=== PATIENT | female | born 1950 | race African-American/Black ===

== ENCOUNTER 2025-06-13 08:16 | Outpatient (AMB) | payer OTHER, SELFPAY ==
--- NOTE | 2025-06-13 08:03 | A.OFFPC_ITS ---
Vital Signs 06/13/25 08:20 Height 5 ft 3 in Weight 138 lb 6 oz BMI 24.5 BP 104/70 Blood Pressure Location Lt brachial Position Sitting Respiration 16 Pulse 57 Pulse Source Pulse Oximeter Temp 97.9 F Temp Source Oral Pulse Oximetry (%) 98 Oxygen Delivery Method Room Air Intake Visit Reasons: Office visit Research Editor Required: No Accompanied by: Self / Same As Patient Allergies No Known Allergies Allergy (Verified 06/13/25 08:21) Medication List - Last Reconciled 06/13/25 by Raquel Rodríguez MD amoxicillin 2,000 mg PO ONCE aspirin 81 mg PO DAILY calcium carbonate (Tums) 200 mg PO BID docusate sodium (Colace) 100 mg PO BID ferrous sulfate 324 mg PO DAILY mecobalamin (vitamin B12) 1,000 mcg PO DAILY Tobacco use date assessed: 06/13/25 Fall risk assessment: No Falls in past year Last assessed Fall Risk: 06/13/25 Dental Screening Dental Screen Date: 06/13/25 Did you have a dental visit in the last 12 months?: Yes Did you have a dental problem in the last 6 months where you did not have access to dental care?: No Was dental information given to patient?: Patient has dentist HPI HPI Comments History of Present Illness Details The patient is a 74-year-old female presenting with re-establishment of care for ongoing medical concerns. Visual Disturbance: The patient reports bilateral vision changes with increased fogginess, symptoms have been ongoing for a few months. Notes occasional dizziness. Polyuria: The patient experiences frequent urination approximately every two hours, with clear urine, and denies dietary changes or urinary pain. Lightheadedness: The patient reports lightheadedness upon standing, also endorses inadequate hydration. History of Parathyroid surgery for hyperarathyroidism: surgery done at [facility] Dermatological Concerns: The patient's daughter has noticed different-appearing lesions on the patient's back, prompting evaluation for potential skin abnormalities. Iron deficiency anemia- on iron supplement B12 deficiency- on vitamin b12 Impaired fasting glucose-due for repeat a1c Medical History: - History of parathyroid surgery - History of cataract surgery - History of borderline hemoglobin A1C l evels - History of anemia Surgical History: - Parathyroid surgery - Cataract surgery - Bilateral hip replacement Social History: - Reports preference for chicken, fish, and vegetables with an emphasis on moderate carbohydrate intake. Family History: - Kidney cancer in father, son, and uncl e - Father had bone cancer (Myeloma) Review of Systems - Vision: Reports visual disturbance and fogginess. - Genitourinary: Reports frequent urinat ion without pain, clear urine. - Neurological: Reports lightheadedness upon standing. - Dermatological: Reports lesions on mariya k. - Cardiovascular: denies chest pain Physical Exam - Vital Signs- Blood pressure 104/70 - HEENT: EOMI, right ear-cerumen impacti on , left ear- normal. - Cardiovascular- normal s1, s2 - Chest: CTABL - Abd: SNTND, +BS - Extremities: no edema bilaterally -Neuro: AOX3, motor strength 5/5 in all extremities - Dermatological- Lesions on the back no mike; concerns of hyperpigmented , irregular lesion on left upper back, sebaceous-like cysts. Assessment and Plan 1. Visual Disturbance - Early ophthalmology follow-up. Will al so check ct head due to associated mental fogginess. 2. Polyuria - Check glucose, renal panel. 3. Lightheadedness - Encourage hydration, monitor electroly [place]. 4. History of parathyroid surgery - Calcium/magnesium check. 5. Dermatological Concerns - Dermatology referral. Try doxycycline for cystic lesions. 6. Anemia- check CBC 7. B12 deficiency- check b12 8. Impaired fasting glucose- check a1c Follow up in 3 months for physical Discussion Notes I discussed the various health concerns with the patient, focusing on visual disturbances, frequent urination, and lightheadedness. I emphasized the importance of managing hydration to address lightheadedness. We will investigate potential parathyroid dysfunction with planned tests. Regarding dermatological findings, I explained the need for professional evaluation to rul e out any significant skin conditions. We talked about obtaining a head CT due to new onset fogginess and visual changes, given the change in symptoms. Arrangements for necessary lab tests and imaging were discussed. Follow-up on all pending results will guide subsequent management strategies. Patient Instructions - Schedule an air defense specialist appointment as soon as possible. - Drink more water daily to improve hydr ation. - Wait for a phone call to schedule CT scan. - Note any worsening of vision or lighth eadedness and report immediately. - Attend the c unix developer appointment f or skin lesions check. - Avoid heavy lifting or any activity th at exacerbates symptoms. 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 How often do you have a drink containing alcohol?: Monthly or less 2. How many drinks containing alcohol do you have on a typical day when you are drinking?: 1 or 2 3. How often do you have six or more drinks on one occasion?: Never Total Score: 1 Physical exam (Primary Care) Vital Signs: Last Vital Signs Temp 97.9 F 06/13/25 08:20 Pulse 57 06/13/25 08:20 Resp 16 06/13/25 08:20 BP 104/70 06/13/25 08:20 Pulse Ox 98 06/13/25 08:20 Oxygen Delivery Method Room Air 06/13/25 08:20 BMI result Body Mass Index 24.5 Tobacco/Smoking Status: Tobacco use Status Tobacco use date assessed 06/13/25 06/13/25 08:04 Patient Tobacco Use Status Never used Tobacco 06/13/25 08:31 e-Cigarette/Vaping Use Never Used 06/13/25 08:31 Coding Level of Care Code Est Pt Level 4 (89478) Complex EM visit Add On G2211 Diagnoses Vision changes H53.9 Impaired fasting glucose R73.01 Hyperparathyroidism E21.3 B12 deficiency E53.8 Iron deficiency anemia, unspecified iron deficiency anemia type D50.9 Iron deficiency anemia type: unspecified iron deficiency Assessment & Plan Assessment & Plan (1) Vision changes: Code(s): H53.9 - Unspecified visual disturbance Category: Medical (2) Impaired fasting glucose: Code(s): R73.01 - Impaired fasting glucose Category: Medical (3) Hyperparathyroidism: Code(s): E21.3 - Hyperparathyroidism, unspecified Category: Medical (4) B12 deficiency: Code(s): E53.8 - Deficiency of other specified B group vitamins Category: Medical (5) Iron deficiency anemia: Code(s): D50.9 - Iron deficiency anemia, unspecified Category: Medical Qualifiers: Iron deficiency anemia type: unspecified iron deficiency Qualified Code(s): D50.9 - Iron deficiency anemia, unspecified Plan - Schedule air defense specialist appointment. Obtain CT head without contrast due to mental fogginess - check labs including cbc, a1c, calcium, magnesium. - Encourage hydration. - Deputy Director Of Nursing referral. Orders: Orders Vitamin B12 Today D50.9 - Iron deficiency anemia, unspecified, E21.3 - Hyperparathyroidism, unspecified, E53.8 - Deficiency of other specified B group vitamins, R73.01 - Impaired fasting glucose Vitamin D 25-OH Total Today E55.9 - Vitamin D deficiency, unspecified TSH reflex Free T4 Today E21.3 - Hyperparathyroidism, unspecified, E53.8 - Deficiency of other specified B group vitamins Hemoglobin A1c Today D50.9 - Iron deficiency anemia, unspecified, E21.3 - Hyperparathyroidism, unspecified, E53.8 - Deficiency of other specified B group vitamins, R73.01 - Impaired fasting glucose Comprehensive Met. Panel Today D50.9 - Iron deficiency anemia, unspecified, E21.3 - Hyperparathyroidism, unspecified, E53.8 - Deficiency of other specified B group vitamins, E55.9 - Vitamin D deficiency, unspecified, R73.01 - Impaired fasting glucose Complete Blood Count Auto Diff Today D50.9 - Iron deficiency anemia, unspecified, E21.3 - Hyperparathyroidism, unspecified, E53.8 - Deficiency of other specified B group vitamins, R73.01 - Impaired fasting glucose Lipid Panel Today D50.9 - Iron deficiency anemia, unspecified, E21.3 - Hyperparathyroidism, unspecified, E53.8 - Deficiency of other specified B group vitamins, R73.01 - Impaired fasting glucose Ferritin Today D50.9 - Iron deficiency anemia, unspecified, E53.8 - Deficiency of other specified B group vitamins Magnesium Today D50.9 - Iron deficiency anemia, unspecified, E21.3 - Hyperparathyroidism, unspecified, E53.8 - Deficiency of other specified B group vitamins, R73.01 - Impaired fasting glucose IRON PROFILE Today D50.9 - Iron deficiency anemia, unspecified, E53.8 - Deficiency of other specified B group vitamins CT head for STROKE Today H53.9 - Unspecified visual disturbance Cortisol Random Today R42 - Dizziness and giddiness Referrals Dermatology Referral L98.9 - Disorder of the skin and subcutaneous tissue, unspecified Medications: New doxycycline hyclate 100 mg PO BID 14 caps 0RF Patient Instructions: TRY DOXYCYCLINE FOR 100MG TWICE DAILY FOR 7 DAYS WE WILL ORDER CT HEAD SCHEDULE APPOINTMENT TO SEE IRONER GET LABS
[2025-06-13 08:20] VITALS: BP 104/70; PULSE 57; RESP 16; TEMP 36.6; O2SAT 98; BMI 24.5
== END 2025-06-13 09:28 | disposition home or self-care (01) ==
LOC: HO.HMCHD 08:16
PROVIDERS: Visit Provider Internal Medicine
DX: H53.9 Unspecified visual disturbance (principal); R73.01 Impaired fasting glucose; E21.3 Hyperparathyroidism, unspecified; E53.8 Deficiency of other specified B group vitamins; D50.9 Iron deficiency anemia, unspecified